=== PATIENT | female | born 1970 | race Two or more races ===

== ENCOUNTER → 2019-03-11 | Outpatient (CLI) | payer OTHER | LOC: MAMMO 13:58 | PROVIDERS: ATTEND Internal Medicine | DX: Z12.31 Encounter for screening mammogram for malignant neoplasm of breast (principal) | CPT/HCPCS: 77067 ==

== ENCOUNTER → 2020-03-07 | Outpatient (CLI) | payer OTHER | LOC: MAMMO 14:54 | PROVIDERS: ATTEND Internal Medicine | DX: Z12.31 Encounter for screening mammogram for malignant neoplasm of breast (principal) | CPT/HCPCS: 77067 ==

== ENCOUNTER → 2022-05-12 | Outpatient (CLI) | payer BC | LOC: MAMMO 14:55 | PROVIDERS: ATTEND Internal Medicine | DX: Z12.31 Encounter for screening mammogram for malignant neoplasm of breast (principal); Z13.820 Encounter for screening for osteoporosis; M19.012 Primary osteoarthritis, left shoulder | CPT/HCPCS: 77067; 77080 ==

== ENCOUNTER → 2024-06-02 | Outpatient (REF) | payer OTHER | LOC: MAMMO 14:19 | PROVIDERS: ATTEND Internal Medicine | DX: Z12.31 Encounter for screening mammogram for malignant neoplasm of breast (principal); M54.2 Cervicalgia; M54.50 Low back pain, unspecified; V89.2XXA Person injured in unspecified motor-vehicle accident, traffic, initial encounter | CPT/HCPCS: 72050; 72110; 77067 ==